=== PATIENT | female | born 1965 | race Caucasian/White ===

== ENCOUNTER 2021-08-08 10:00 | Emergency (ER) | payer OTHER | END 2021-08-08 10:34 | disposition home or self-care (01) | LOC: BURERS 10:00 | DX: J20.9 Acute bronchitis, unspecified (principal); I10 Essential (primary) hypertension; E03.9 Hypothyroidism, unspecified; Z87.891 Personal history of nicotine dependence; Z79.899 Other long term (current) drug therapy | CPT/HCPCS: 99283 ==

== ENCOUNTER 2022-02-14 08:05 | Emergency (ER) | payer OTHER ==
[2022-02-14] MEDS ORDERED: Dexamethasone 10 MG/ML VIAL ONE (08:36)
== END 2022-02-14 08:43 | disposition home or self-care (01) ==
LOC: BURERS 08:05
DX: J01.90 Acute sinusitis, unspecified (principal); B96.89 Other specified bacterial agents as the cause of diseases classified elsewhere; I10 Essential (primary) hypertension; E03.9 Hypothyroidism, unspecified; M06.9 Rheumatoid arthritis, unspecified; Z85.43 Personal history of malignant neoplasm of ovary; Z79.899 Other long term (current) drug therapy
CPT/HCPCS: 96372; 99283; J1100